=== PATIENT | male | born 1990 | race American Indian/Alaskan Native ===

== ENCOUNTER 2016-12-05 12:58 | Emergency (ER) | payer OTHER ==
--- NOTE | 2016-12-05 12:59 | ED PDOC ---
Arrival/HPI - General Time Seen by Provider: 12/05/16 12:59 Historian: Patient, EMS - History of Present Illness Narrative History of Present Illness (Text): 12/05/16 12:59 26 y/o male, no significant pmh, nkda, c/o lower back pain x 2 hours. Pt. stated that he was lifting a heavy bag of clothing by use his lower back as lifting movement, twisted the back, been having pain since, non radiating, no numbness or tingling, no urinary or bowel incontinence or retention, no urinary symptoms, no night sweat, no dizziness, no other medical or psychological complaints. Past Medical History - Provider Review Nursing Documentation Reviewed: Yes Family/Social History - Physician Review Nursing Documentation Reviewed: Yes Family/Social History: Unknown Family HX Allergies/Home Meds Allergies/Adverse Reactions: Allergies No Known Allergies Allergy (Verified 12/05/16 13:10) Review of Systems - Review of Systems Constitutional: absent: Fatigue, Fevers Eyes: absent: Vision Changes ENT: absent: Hearing Changes Respiratory: absent: SOB, Cough Cardiovascular: absent: Chest Pain Gastrointestinal: absent: Abdominal Pain, Nausea, Vomiting Musculoskeletal: Back Pain, Myalgias. absent: Arthralgias, Neck Pain, Joint Swelling Skin: absent: Rash, Pruritis Physical Exam Vital Signs Reviewed: Yes Vital Signs Temp Pulse Resp BP Pulse Ox 12/05/16 13:09 98.2 F 78 18 118/67 99 Temperature: Afebrile Blood Pressure: Normal Pulse: Regular Respiratory Rate: Normal Appearance: Positive for: Well-Appearing, Non-Toxic Pain Distress: Severe Mental Status: Positive for: Alert and Oriented X 3 - Systems Exam Head: Present: Atraumatic, Normocephalic Pupils: Present: PERRL Extroacular Muscles: Present: EOMI Conjunctiva: Present: Normal Mouth: Present: Moist Mucous Membranes Neck: Present: Normal Range of Motion Respiratory/Chest: Present: Clear to Auscultation, Good Air Exchange. No: Respiratory Distress, Accessory Muscle Use Cardiovascular: Present: Regular Rate and Rhythm, Normal S1, S2. No: Murmurs Abdomen: Present: Normal Bowel Sounds. No: Tenderness, Distention, Peritoneal Signs Back: Present: Normal Inspection, Other (LS spine: +ttp on the lt. paraspinal and spasm noted, no midline tenderness or step off, no rash, FROM without limitation but pain with extension and lateral movement, sensation intact, motor 5/5, no saddling gait. ). No: CVA Tenderness, Midline Tenderness, Pain with Leg Raise, Decubitus Ulcer Upper Extremity: Present: Normal Inspection. No: Cyanosis, Edema Lower Extremity: Present: Normal Inspection. No: Edema Neurological: Present: GCS=15, CN II-XII Intact, Speech Normal Skin: Present: Warm, Dry, Normal Color. No: Rashes Psychiatric: Present: Alert, Oriented x 3, Normal Insight, Normal Concentration Medical Decision Making ED Course and Treatment: 12/05/16 13:07 -xray of LS spine -I checked the [facility] which unable to see the patient's profile. -toradol IM/flexeril and percoet -observe and reassess 12/05/16 14:45 -Xrays show: Unremarkable radiographs of the lumbar spine -Pt. feels much better, will discharge home. -Discharge home with ibuprofen with pepcid, flexeril, take percocet as needed for severe pain and avoid taking flexeril and percocet at the same time as it may be too drowsy, follow up with your own pmd and orthopedic within 2 days, return to the ER for any new or worsening signs or symptoms. - RAD Interpretation Radiology Orders: 12/05/16 13:12 LS SPINE WITH OBL > 18 YRS OLD [RAD] Stat PROCEDURE: Radiographs of the Lumbar Spine. HISTORY: lt. lower back pain s/p heavy lifting COMPARISON: No prior. FINDINGS: BONES: Normal alignment. No listhesis. No fracture. DISC SPACES: Unremarkable. OTHER FINDINGS: None. IMPRESSION: Unremarkable radiographs of the lumbar spine. 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 Yes Sleep Is patient sleeping during reassessment? No Presence of Pain Presence of Pain Yes Pain Scale Used Pain Scale Used Numeric Location Left, Right or Bilateral Bilateral Upper or Lower Lower Pain Location Body Site Back Description Description Constant Intensity of Pain at present 10 Pain Behavior Restlessness Facial Grimacing Aggravating Factors ADL's Changing Position Walking Alleviating Factors/Management Medication Techniques Alleviating Factors Medication IM Administration Charges Document 12/05/16 13:44 MR (Rec: 12/05/16 13:44 MR [id number]) Injection Site MAR Injection Site Left Gluteus Nathan Charges for Administration # of IM Administrations 1 Oxycodone/Acetaminophen (Percocet 5/325 Mg Tab) 1 tab PO STAT STA Stop: 12/05/16 13:13 Last Admin: 12/05/16 13:43 Dose: 1 tab MAR Pain Assessment Document 12/05/16 13:43 MR (Rec: 12/05/16 13:43 MR [id number]) Pain Reassessment Is this a pain reassessment? Yes Sleep Is patient sleeping during reassessment? No Presence of Pain Presence of Pain Yes Pain Scale Used Pain Scale Used Numeric Location Left, Right or Bilateral Bilateral Upper or Lower Lower Pain Location Body Site Back Description Description Constant Intensity of Pain at present 10 Pain Behavior Withdrawal from Touch Restlessness Facial Grimacing Aggravating Factors ADL's Changing Position Sitting Walking Alleviating Factors/Management Medication Techniques Alleviating Factors Medication - PA / SENIOR ANALYST / Resident Statement MD/DO has reviewed & agrees with the documentation as recorded. Disposition/Present on Arrival - Present on Arrival Any Indicators Present on Arrival: No History of DVT/PE: No History of Uncontrolled Diabetes: No Urinary Catheter: No History of Decub. Ulcer: No - Disposition Have Diagnosis and Disposition been Completed?: Yes Diagnosis: Back injury, Back pain, Back muscle spasm Disposition: HOME/ ROUTINE Disposition Time: 13:08 Patient Plan: Discharge Patient Problems: Current Active Problems Problem Status Onset Back injury Acute Back pain Acute Condition: IMPROVED Additional Instructions: Discharge home with ibuprofen with pepcid, flexeril, take percocet as needed for severe pain and avoid taking flexeril and percocet at the same time as it may be too drowsy, follow up with your own pmd and orthopedic within 2 days, return to the ER for any new or worsening signs or symptoms. Prescriptions: Cyclobenzaprine [Cyclobenzaprine HCl] 10 mg PO TID #21 tab Famotidine [Pepcid] 20 mg PO BID #14 tab Ibuprofen [Motrin Tab] 800 mg PO TID PRN #21 tab PRN Reason: Other oxyCODONE/Acetaminophen [Percocet 5/325 mg Tab] 1 tab PO QID PRN #10 tab PRN Reason: Other Referrals: PCP,NO [Primary Care Provider] - Follow up with primary Kemar Medrano MD [Staff Provider] - Follow up with primary [facility] [Outside] - Follow up with primary Forms: WORK NOTE
[2016-12-05 13:10] VITALS: TEMP 98.2; BMI 22.6
[2016-12-05] MEDS ORDERED: Oxycodone/Acetaminophen 5/325 mg Tab PO STA (13:12)
--- NOTE | 2016-12-05 14:44 | RAD ---
PROCEDURE: Radiographs of the Lumbar Spine. HISTORY: lt. lower back pain s/p heavy lifting COMPARISON: No prior. FINDINGS: BONES: Normal alignment. No listhesis. No fracture. DISC SPACES: Unremarkable. OTHER FINDINGS: None. IMPRESSION: Unremarkable radiographs of the lumbar spine. Please note: No preliminary report/ innterpretation of this examination provided by emergency department personnel.
[2016-12-05 15:01] VITALS: BP 126/82; PULSE 70; RESP 16; O2SAT 97
== END 2016-12-05 15:03 | disposition home or self-care (01) ==
LOC: ED 12:58
DX: S39.92XA Unspecified injury of lower back, initial encounter (principal); X50.0XXA Overexertion from strenuous movement or load, initial encounter; Y93.89 Activity, other specified; Y92.89 Other specified places as the place of occurrence of the external cause
CPT/HCPCS: 72110; 96372; 99283; J1885